=== PATIENT | male | born 1960 | race Caucasian/White ===

== ENCOUNTER 2017-09-26 05:58 | Day surgery (SDC) | payer BC ==
[2017-09-20 14:13] LABS: BASOPHILS # (AUTO) 0.1 X10'3 (0-0.2); BASOPHILS % (AUTO) 0.7 % (0-1); EOSINOPHILS # (AUTO) 0.5 X10'3 (0-0.9); EOSINOPHILS % (AUTO) 5.5 % (0-6); LYMPHOCYTES # (AUTO) 2.5 X10'3 (1.1-4.8); LYMPHOCYTES % (AUTO) 29.6 % (21-51); MEAN CORPUSCULAR HEMOGLOBIN 32.2 PG (27.0-31.0); MEAN CORPUSCULAR HGB CONC 34.1 % (33.0-36.5); MEAN CORPUSCULAR VOLUME 94.5 FL (78-98); MEAN PLATELET VOLUME 8.7 FL (7.4-10.4); MONOCYTES # (AUTO) 0.7 X10'3 (0-0.9); MONOCYTES % (AUTO) 8.8 % (2-12); NEUTROPHILS # (AUTO) 4.6 X10'3 (1.8-7.7); NEUTROPHILS % (AUTO) 55.4 % (42-75); PRE OP HEMATOCRIT 42.8 % (42.0-52.0); PRE OP HEMOGLOBIN 14.6 g/dL (14.0-17.9); PRE OP PLATELET COUNT 228 X10'3 (140-440); RED BLOOD COUNT 4.53 X10'6 (4.70-6.10)
[2017-09-20 14:14] LABS: CLARITY,URINE CLEAR (Clear); COLOR,URINE YELLOW (Yellow); GLUCOSE, URINE >=1000 mg/dl (Neg); KETONES,URINE TRACE mg/dl (Neg); LEUKOCYTE ESTERASE ,URINE NEGATIVE (Neg); NITRITES, URINE NEGATIVE (Neg); OCCULT BLOOD,URINE TRACE-INTACT (Neg); PH,URINE 5.5 (4.8-8.0); PROTEIN,URINE NEGATIVE (Neg); UROBILINOGEN,URINE 0.2 E.U/dL (0.2-1.0)
[2017-09-20 14:20] LABS: UA COLLECTION TYPE CLN CATCH MIDSTREAM
[2017-09-20 14:21] LABS: BACTERIA,URINE FEW /HPF (Neg); CAL OXALATE CRYSTALS 1+ /HPF (NEGATIVE); HYALINE CASTS 0-3 /LPF (NEGATIVE); MUCUS STRANDS MODERATE /LPF (Neg); RBC,URINE 0-2 /HPF (0-2); SQUAMOUS EPITHELIAL CELL,UR FEW /LPF (FEW); WBC,URINE 0-4 /HPF (0-4)
[2017-09-20 14:30] LABS: ALBUMIN 3.3 G/DL (3.4-5.0); ALBUMIN/GLOBULIN RATIO 0.9 (1.1-1.5); ALKALINE PHOSPHATASE 70 IU/L (46-116); BLOOD UREA NITROGEN 14 MG/DL (7-18); BUN/CREATININE RATIO 16.9 (5.4-32.0); CALCIUM 8.8 MG/DL (8.5-10.1); CHLORIDE 105 MMOL/L (99-107); CREATININE 0.83 MG/DL (0.60-1.10); PRE OP ALT 28 U/L (30-65); PRE OP ANION GAP 9 (8-16); PRE OP AST 18 U/L (10-37); PRE OP BILIRUB, TOTAL 0.7 MG/DL (0.0-1.0); PRE OP POTASSIUM 3.7 MMOL/L (3.4-5.1); PRE OP SODIUM 139 MMOL/L (135-145); TOTAL PROTEIN 6.9 G/DL (6.4-8.2); eGFR > 90 ML/MIN
[2017-09-20 14:31] LABS: PRE OP GLUCOSE 242 MG/DL (70-104)
[2017-09-20 14:51] LABS: HEMOGLOBIN A1C 6.8 % (4.5-6.2)
[2017-09-26] VITALS (8 sets, daily range): BP systolic 134–143; BP diastolic 77–91
[~2017-09-26] VITALS: Ht 167.6 cm; Wt 101.1 kg
[~2017-09-26 05:58] MED LIST: GENTAMICIN IV ONE; MELA3TAB PO; NORMAL SALINE IV ONE; clindamycin-Cleocin 900mg/D5W 50 ML IV ONE; famotidine 20mg tablet PO ONE; ringers solution, lacted 1,000 ML IV SCH
[2017-09-26] MEDS ORDERED: LIDOcaine 1% (10mg/ml) 2ml vial ONE (06:09)
[2017-09-26] MEDS ORDERED: BUPIVAcaine/PF 2.5 mg/ml (0.25%) 30ml vial ONE (06:52)
[2017-09-26] MEDS ORDERED: propofol inj 20 ML IV ONE (07:50)
[2017-09-26] MEDS ORDERED: midazolam 2 mg/2 ml injection ONE (07:54)
[2017-09-26] MEDS ORDERED: fentaNYL/PF 50MCG/1 ML 2ML syringe ONE (07:54)
[2017-09-26] MEDS ORDERED: LIDOcaine 2% 5ml jelly ONE (07:57)
[2017-09-26] MEDS ORDERED: sevoflurane 250ml liquid IH ONE (08:30)
[2017-09-26] MEDS ORDERED: dexamethasone sod phosphate 4mg/ml inj. ONE (08:30)
[2017-09-26] MEDS ORDERED: ketorolac trometh. 30mg/ml inj. ONE (08:30)
[2017-09-26] MEDS ORDERED: ringers solution, lacted 1,000 ML IV SCH (09:02)
[2017-09-26] MEDS ORDERED: fentaNYL/PF 50MCG/1 ML 2ML syringe IV PRN ×2 (09:05)
[2017-09-26] MEDS ORDERED: HYDROmorphone inj. 0.5 MG/0.5 ML DISP.SYRIN IV PRN ×2 (09:05)
[2017-09-26] MEDS ORDERED: meperidine/PF 50mg/ml syringe IV PRN (09:05)
[2017-09-26] MEDS ORDERED: proCHLORperazine 10 MG/2 ml inj IV PRN (09:05)
[2017-09-26] MEDS ORDERED: ondansetron/PF 4mg/2ml inj IV PRN (09:05)
[2017-09-26] MEDS ORDERED: HYDROcodone/acetaminophen 10/325mg tab PO PRN (10:50)
== END 2017-09-26 11:28 | disposition home or self-care (01) ==
LOC: PAS 05:58
PROVIDERS: ATTEND Surgery
PROC: 0YU60JZ Supplement Left Inguinal Region with Synthetic Substitute, Open Approach (ICD-10-PCS; principal; 2017-09-26 08:30)
DX: K40.90 Unilateral inguinal hernia, without obstruction or gangrene, not specified as recurrent (principal); E11.9 Type 2 diabetes mellitus without complications; Z88.1 Allergy status to other antibiotic agents; Z85.9 Personal history of malignant neoplasm, unspecified; E66.9 Obesity, unspecified; R94.31 Abnormal electrocardiogram [ECG] [EKG]
CPT/HCPCS: 36415; 49505; 80053; 81001; 82948; 83036; 85025; 93005; A6402; A6449; C1781; J2175; J2250; J2704; J3010; J3490; J7120; A7000; J1100; J1580; J1885; J7030

== ENCOUNTER 2020-08-14 07:30 | Day surgery (SDC) | payer BC ==
[2020-08-07 15:18] LABS: BASOPHILS # (AUTO) 0.1 X10'3 (0-0.2); BASOPHILS % (AUTO) 1.7 % (0-1); EOSINOPHILS # (AUTO) 0.4 X10'3 (0-0.9); EOSINOPHILS % (AUTO) 5.7 % (0-6); LYMPHOCYTES # (AUTO) 2.9 X10'3 (1.1-4.8); LYMPHOCYTES % (AUTO) 38.7 % (21-51); MEAN CORPUSCULAR HEMOGLOBIN 31.9 PG (27.0-31.0); MEAN CORPUSCULAR HGB CONC 33.9 g/dL (33.0-36.5); MEAN PLATELET VOLUME 8.8 FL (7.4-10.4); MONOCYTES # (AUTO) 0.8 X10'3 (0-0.9); MONOCYTES % (AUTO) 10.7 % (2-12); NEUTROPHILS # (AUTO) 3.2 X10'3 (1.8-7.7); NEUTROPHILS % (AUTO) 43.2 % (42-75); PRE OP HEMATOCRIT 43.1 % (42.0-52.0); PRE OP HEMOGLOBIN 14.6 g/dL (14.0-17.9); PRE OP PLATELET COUNT 219 X10'3 (140-440); RED BLOOD COUNT 4.59 X10'6 (4.70-6.10); RED CELL DISTRIBUTION WIDTH 12.8 % (11.5-14.5)
[2020-08-07 15:34] LABS: ALBUMIN 3.2 G/DL (3.4-5.0); ALBUMIN/GLOBULIN RATIO 0.9 (1.1-1.5); ALKALINE PHOSPHATASE 58 IU/L (46-116); BLOOD UREA NITROGEN 14 MG/DL (7-18); BUN/CREATININE RATIO 18.4 (5.4-32.0); CALCIUM 8.7 MG/DL (8.5-10.1); CHLORIDE 107 MMOL/L (99-107); CREATININE 0.76 MG/DL (0.60-1.10); PRE OP ALT 28 U/L (30-65); PRE OP ANION GAP 8 (8-16); PRE OP AST 20 U/L (10-37); PRE OP BILIRUB, TOTAL 0.6 MG/DL (0.0-1.0); PRE OP GLUCOSE 93 MG/DL (70-104); PRE OP POTASSIUM 3.8 MMOL/L (3.4-5.1); PRE OP SODIUM 142 MMOL/L (135-145); TOTAL CARBON DIOXIDE 27.1 MMOL/L (24-32); TOTAL PROTEIN 6.9 G/DL (6.4-8.2); eGFR > 90 ML/MIN
[2020-08-14] VITALS (8 sets, daily range): BP systolic 113–134; BP diastolic 75–91
[~2020-08-14] VITALS: Ht 167.6 cm; Wt 99.8 kg
[~2020-08-14 07:30] MED LIST changes: -GENTAMICIN IV ONE; -MELA3TAB PO; +MELA5TAB12 PO; -NORMAL SALINE IV ONE; +ceFAZolin 2gm in dextrose, iso 50 ML IV ONE; -clindamycin-Cleocin 900mg/D5W 50 ML IV ONE
[2020-08-14] MEDS ORDERED: ondansetron/PF 4mg/2ml inj IV PRN (10:20)
[2020-08-14] MEDS ORDERED: hydrALAZINE 20mg/ml inj. IV PRN (10:20)
[2020-08-14] MEDS ORDERED: acetaminophen 1,000mg/100ml IV 100 ML IV PRN (10:20)
[2020-08-14] MEDS ORDERED: proCHLORperazine 10 MG/2 ml inj IV PRN (10:20)
[2020-08-14] MEDS ORDERED: ringers solution, lacted 1,000 ML IV SCH (10:20)
[2020-08-14] MEDS ORDERED: labetalol 20mg/4ml (5mg/ml) syringe IV PRN (10:20)
[2020-08-14] MEDS ORDERED: HYDROmorphone/PF 0.2 MG/ML SYRINGE IV PRN ×2 (10:20)
[2020-08-14] MEDS ORDERED: meperidine/PF 25mg/ml syringe IV PRN ×3 (10:20)
[2020-08-14] MEDS ORDERED: sevoflurane 250ml liquid IH ONE (10:22)
[2020-08-14] MEDS ORDERED: fentaNYL/PF 50MCG/1 ML 2ML syringe ONE (10:31)
[2020-08-14] MEDS ORDERED: midazolam 1 mg/ML 2ml injection ONE (10:38)
[2020-08-14] MEDS ORDERED: LIDOcaine 2% (20mg/ml) 5ml vial ONE (10:43)
[2020-08-14] MEDS ORDERED: propofol inj 20 ML IV ONE (10:43)
[2020-08-14] MEDS ORDERED: ondansetron/PF 4mg/2ml inj ONE (10:43)
[2020-08-14] MEDS ORDERED: dexamethasone sod phosphate 4mg/ml inj. ONE (10:59)
[2020-08-14] MEDS ORDERED: 0.9 % SODIUM CHLORIDE 10 ML VIAL ONE (11:10)
[2020-08-14] MEDS ORDERED: ePHEDrine 50MG/ML INJ. ONE (11:10)
[2020-08-14] MEDS ORDERED: morphine 10mg/ml inj. ONE (12:00)
[2020-08-14] MEDS ORDERED: ketorolac trometh. 30mg/ml inj. ONE (12:02)
--- NOTE | 2020-08-14 12:25 | NUR ---
Received from OR via [facility], accompanied by Anesthesiologist and report given by Anesthesiologist. PATIENT IS SLEEPING AND SNORING INTERMITTENTLY, NASAL TRUMPET INSERTED IN RIGHT NARE BY DR. BABB, O2 SAT IS 95% WITH 02 10L WITH MASK, RIGHT FOREARM WITH 20g PIV LR Ted KING, WILL MONITOR. Addendum: 08/14/20 at 1252 by Gillian Neville RN Amended: Links added.
--- NOTE | 2020-08-14 13:35 | NUR ---
PATIENT V.S. STABLE, DENIES PAIN OR NAUSEA, NASAL TRUMPET D/C/D FROM RIGHT NARE WITH NO COMPLICATIONS AT 1320, NO SIGNS OF DISTRESS OR DISCOMFORT, PIV D/C'D FROM LEFT FOREARM 20G CATHETER INTACT, LATERAL DRESSING ON LEFT GROIN CHRISTOPH, FARIHA, BG 136 AT 1323, DR. BABB NOTIFIED AND OK TO DISCHARGE, DISCHARGE INSTRUCTION GIVEN TO PATIENT, PATIENT VERBALIZED UNDERSTANDING, PATIENT TRANSFERRED TO PRIVATE VEHICLE ON WHEELCHAIR WITH NO INCIDENT, HIS IS TAKING PATIENT HOME. Addendum: 08/14/20 at 1355 by Gillian Neville RN Amended: Links added.
== END 2020-08-14 13:35 | disposition home or self-care (01) ==
LOC: PAS 07:30
PROVIDERS: ATTEND Urology
DX: N50.89 Other specified disorders of the male genital organs (principal); Z20.822 Contact with and (suspected) exposure to COVID-19; E11.9 Type 2 diabetes mellitus without complications; E66.9 Obesity, unspecified; Z68.37 Body mass index [BMI] 37.0-37.9, adult; Z79.899 Other long term (current) drug therapy; Z88.0 Allergy status to penicillin; Z85.828 Personal history of other malignant neoplasm of skin; Z98.890 Other specified postprocedural states; Z91.013 Allergy to seafood; Z82.49 Family history of ischemic heart disease and other diseases of the circulatory system
CPT/HCPCS: 36415; 54530; 80053; 82948; 85025; 87635; 93005; J1100; J1885; J2001; J2250; J2270; J2405; J2704; J3010; A4618; A6449; A7000; J7120

== ENCOUNTER 2020-10-12 12:33 | Emergency (ER) | payer BC ==
[~2020-10-12] VITALS: Ht 167.6 cm; Wt 90.7 kg
[~2020-10-12 12:33] MED LIST changes: -ceFAZolin 2gm in dextrose, iso 50 ML IV ONE; -famotidine 20mg tablet PO ONE; -ringers solution, lacted 1,000 ML IV SCH
[2020-10-12] MEDS ORDERED: ondansetron/PF 4mg/2ml inj IV ONE (14:30)
[2020-10-12] MEDS ORDERED: normal saline 1000ml 1,000 ML IV ONE (14:30)
[2020-10-12 15:06] LABS: BASOPHILS % (AUTO) 0.7 % (0-1); EOSINOPHILS % (AUTO) 0.4 % (0-6); HEMATOCRIT 45.6 % (42.0-52.0); HEMOGLOBIN 15.7 g/dl (14.0-17.9); LYMPHOCYTES # (AUTO) 1.3 X10'3 (1.1-4.8); LYMPHOCYTES % (AUTO) 21.9 % (21-51); MEAN CORPUSCULAR HEMOGLOBIN 31.9 PG (27.0-31.0); MEAN CORPUSCULAR HGB CONC 34.5 g/dL (33.0-36.5); MEAN CORPUSCULAR VOLUME 92.5 FL (78-98); MEAN PLATELET VOLUME 8.3 FL (7.4-10.4); NEUTROPHILS # (AUTO) 3.5 X10'3 (1.8-7.7); PLATELET COUNT 266 X10'3 (140-440); RED BLOOD COUNT 4.92 X10'6 (4.70-6.10); RED CELL DISTRIBUTION WIDTH 12.9 % (11.5-14.5); WHITE BLOOD COUNT 5.9 X10'3 (4.5-11.0)
[2020-10-12 15:20] LABS: ALANINE AMINOTRANSFERASE 40 U/L (12-78); ALBUMIN 2.9 G/DL (3.4-5.0); ALBUMIN/GLOBULIN RATIO 0.6 (1.1-1.5); ALKALINE PHOSPHATASE 68 IU/L (46-116); ANION GAP 14 (8-16); ASPARTATE AMINO TRANSFERASE 51 U/L (10-37); BILIRUBIN,TOTAL 1.1 MG/DL (0.1-1.0); BLOOD UREA NITROGEN 16 MG/DL (7-18); CHLORIDE 99 MMOL/L (99-107); CREATININE 0.84 MG/DL (0.60-1.10); GLUCOSE 84 MG/DL (70-104); LIPASE 106 U/L (73-393); POTASSIUM 3.6 MMOL/L (3.5-5.1); SODIUM 135 MMOL/L (135-145); TOTAL CARBON DIOXIDE 22.1 MMOL/L (24-32); TOTAL PROTEIN 7.5 G/DL (6.4-8.2); eGFR > 90 ML/MIN
[2020-10-12] MEDS ORDERED: pantoprazole 40 MG vial IV ONE (15:45)
[2020-10-12 16:03] LABS: CLARITY,URINE SLIGHTLY CLOUDY (Clear); GLUCOSE, URINE NEGATIVE (Neg); KETONES,URINE >=80 mg/dl (Neg); LEUKOCYTE ESTERASE ,URINE NEGATIVE (Neg); NITRITES, URINE NEGATIVE (Neg); OCCULT BLOOD,URINE NEGATIVE (Neg); PROTEIN,URINE 100 mg/dl (Neg)
[2020-10-12 16:05] LABS: COLOR,URINE DARK YELLOW (Yellow); UA COLLECTION TYPE CLN CATCH MIDSTREAM
[2020-10-12 16:16] LABS: MUCUS STRANDS MANY /LPF (Neg)
[2020-10-12 16:17] LABS: COARSE GRANULAR CAST 0-3 /LPF (NEGATIVE); HYALINE CASTS 0-3 /LPF (NEGATIVE)
[2020-10-12 16:18] LABS: SQUAMOUS EPITHELIAL CELL,UR FEW /LPF (FEW); TRANSITIONAL EPI CELLS,URINE FEW /HPF
[2020-10-12] MEDS ORDERED: ONDA4TAB6 PO (16:18)
[2020-10-12 16:19] LABS: BACTERIA,URINE FEW /HPF (Neg); RBC,URINE 0-2 /HPF (0-2); WBC,URINE 0-4 /HPF (0-4)
[2020-10-12 16:31] LABS: ACANTHOCYTES FEW; BURR CELLS 2+; ELLIPTOCYTES FEW; PLATELET ESTIMATE NORMAL; SCHISTOCYTES FEW
[2020-10-12] MEDS ORDERED: ALBU8HFA PO (16:38)
[2020-10-12] MEDS ORDERED: BENZ-16 PO (16:38)
[2020-10-12 17:36] VITALS: BP 120/81
== END 2020-10-12 17:35 | disposition home or self-care (01) ==
LOC: ER 12:34
DX: U07.1 COVID-19 (principal); R11.2 Nausea with vomiting, unspecified; E11.9 Type 2 diabetes mellitus without complications; Z88.0 Allergy status to penicillin; Z88.6 Allergy status to analgesic agent; Z91.013 Allergy to seafood; Z79.899 Other long term (current) drug therapy; Z85.47 Personal history of malignant neoplasm of testis
CPT/HCPCS: 36415; 71045; 80053; 81001; 83690; 85008; 85025; 87635; 96365; 99284; C9803; J2405; J7030